=== PATIENT | female | born 2000 | race Caucasian/White ===

== ENCOUNTER 2022-12-05 01:18 | Emergency (ER) | payer BC ==
[~2022-12-05] VITALS: Ht 170.2 cm; Wt 103.0 kg
[2022-12-05] MEDS ORDERED: FAMOTIDINE 20MG VIAL IV ONE (02:00)
[2022-12-05] MEDS ORDERED: DIAZEPAM 5 MG/ML 2 ML SYG IVP ONE (02:00)
[2022-12-05] MEDS ORDERED: KETOROLAC 15MG/ML VIAL (15MG/ML) IV ONE (02:00)
[2022-12-05] MEDS ORDERED: CYCL10TA16 PO (02:02)
[2022-12-05] MEDS ORDERED: NAPR-1192 PO (02:02)
[2022-12-05 02:55] VITALS: BP 128/72; PULSE 76; RESP 18; O2SAT 100
== END 2022-12-05 02:57 | disposition home or self-care (01) ==
LOC: EDH 01:18
DX: M54.12 Radiculopathy, cervical region (principal)
CPT/HCPCS: 99284; 96374; 96375; J3490; J3360; J1885